=== PATIENT | male | born 1985 | race Caucasian/White ===

== ENCOUNTER 2023-09-27 09:46 | Outpatient (OUT) | payer BC, SELFPAY ==
[2023-09-27 10:44] LABS: Basophils Absolute Auto 0.1 10^3/uL (0.0-0.1); Eosinophils Absolute Auto 0.6 10^3/uL (0.0-0.7); Eosinophils Percent Auto 10.3 % (0.9-7.0); Hematocrit 47.5 % (42.0-54.0); Hemoglobin 15.5 g/dL (14.0-18.0); Immature Granulocytes Abs Auto 0.01 10^3/uL (0.00-0.03); Immature Granulocytes Pct Auto 0.2 % (0.0-0.5); Lymphocytes Absolute Auto 1.7 10^3/uL (1.2-3.8); Lymphocytes Percent Auto 26.7 % (20.5-60.0); Mean Corpuscular HGB Conc 32.6 g/dL (29.9-35.2); Mean Corpuscular Volume 92.1 fL (80.0-94.0); Mean Platelet Volume 9.3 fL (9.5-13.5); Monocytes Absolute Auto 0.7 10^3/uL (0.3-0.8); Monocytes Percent Auto 10.6 % (1.7-12.0); Neutrophils Absolute Auto 3.2 10^3/uL (1.4-6.5); Neutrophils Percent Auto 51.2 % (43.0-75.0); Platelet Count 317 10^3/uL (150-450); Red Blood Count 5.16 10^6/uL (4.70-6.10); Red Cell Distribution Width 12.6 % (11.0-15.0); White Blood Count 6.2 10^3/uL (4.0-11.0)
[2023-09-27 11:59] LABS: Alanine Aminotransferase 70 U/L (16-63); Albumin Globulin Ratio 0.8; Albumin Level 3.9 g/dL (3.4-5.0); Alkaline Phosphatase 90 U/L (46-116); Anion Gap 13.4; Aspartate Amino Transferase 38 U/L (15-37); BUN Creatinine Ratio 10.1; Bilirubin Total 0.5 mg/dL (0.2-1.0); Calcium 9.2 mg/dL (8.5-10.1); Carbon Dioxide 26.8 mmol/L (21.0-32.0); Chloride 101 mmol/L (98-107); Chol HDL Ratio 4.3; Cholesterol 286 mg/dL (<=200); Estimated GFR (African America >60 (>=60); Estimated GFR (Non-African Ame >60 (>=60); Globulin 4.7 g/dL; Glucose 96 mg/dL (74-106); HDL Cholesterol 67 mg/dL (40-60); Potassium 4.2 mmol/L (3.5-5.1); Sodium 137 mmol/L (136-145); Total Protein 8.6 g/dL (6.4-8.2); Triglycerides 131 mg/dL (<=150); VLDL CHOLESTEROL 26.2 mg/dL
== END 2023-09-27 09:47 | disposition home or self-care (01) ==
LOC: LAB 09:52
DX: Z51.81 Encounter for therapeutic drug level monitoring (principal); Z13.6 Encounter for screening for cardiovascular disorders
CPT/HCPCS: 36415; 80053; 80061; 85025

== ENCOUNTER 2025-04-13 14:22 | Emergency (ER) | payer OTHER, SELFPAY ==
[2025-04-13 14:30] VITALS: BP 209/115; PULSE 122; TEMP 36.5; O2SAT 96; BMI 41.1
--- NOTE | 2025-04-13 15:02 | XR_ITS ---
The [address] [address] Patient Name: HANNAH LONG MRN: [id number] date: 1985 Sex: M Assigned Patient Location: ER Current Patient Location: ED.MAIN Accession/Order Number: [id number] Exam Date: 04/13/2025 15:19 Report Date: 04/13/2025 16:30 At the request of: LACIE ADAMES Procedure: XR foot RT min 3V 3 views right foot HISTORY: Fell last week. Right great toe injury No acute displaced fracture. 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 Large superior marginal spurring XR/XR foot RT min 3V IMPRESSION: No acute displaced fracture. Extensive first toe degeneration. Impression dictated by: Emeterio Giraldo M.D. 04/13/2025 4:30 PM Dictation Location: [facility]ITALSquare[facility] Electronically authenticated by: [id number] Y Date: 04/13/2025 16:30
--- OUTSIDE RECORDS SUMMARY | 2025-04-13 15:51 | XMS_ITS | CCD ---
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 Name Role Phone HOUSE, JOAN Unavailable Unavailable HOUSE, JOAN Unavailable Unavailable HOUSE, JOAN Unavailable Unavailable HOUSE, JOAN Unavailable Unavailable JOE SEALS Unavailable Unavailable HOUSE, JOAN Unavailable Unavailable HOUSE, JOAN Unavailable Unavailable Hannah Santos Unavailable Hermes Bryant Unavailable Janine Alberto Unavailable Mariella Gomez Unavailable DEVI QUIJANO Attending Unavailable HANNAH SANTOS Referring Unavailable DEVI QUIJANO Attending Unavailable HANNAH SANTOS Referring Unavailable DEVI QUIJANO Attending Unavailable HANNAH SANTOS Referring Unavailable DEVI QUIJANO Attending Unavailable HANNAH SANTOS Referring Unavailable Hannah Santos DO Primary Care Provider Janine Alberto APRN Attending Provider Hannah Santos DO Attending Provider Hannah Santos DO Primary Care Provider [phone] Medications Current Medications MedicationDrug Class(es)DatesSig (Normalized)Sig (Original)amoxicillin 875 mg / clavulanate 125 mg oral tablet (6 sources)Penicillin-class AntibacterialStart: 60-57-7223vueb 1 tablet by mouth every twelve hoursAmoxicillin-Pot Clavulanate 875-125 MG 1 tablet Orally every 12 hrs for 10 day(s) Nov, ActiveStart: 54-26-8738skxf 1 tablet by mouth every twelve hoursAmoxicillin-Pot Clavulanate 875-125 MG 1 tablet Orally every 12 hrs for 10 day(s) May, Activeamphetamine aspartate 2.5 mg / amphetamine sulfate 2.5 mg / dextroamphetamine saccharate 2.5 mg / de xtroamphetamine sulfate 2.5 mg oral tablet (20 sources)Central Nervous System StimulantStart: 01-01-2024 End: 60-90-7561jwzf 1 tablet by mouth every four to six hoursDextroamphetamine- Amphetamine 10 mg tablet Active 10 MG PO Twice daily 60 30 January 08, 2025 administer doses at least 4-6 hours apart Complies with drug therapyStart: 07-10-2023 End: 88-33-1242Mtvcdarpweqgmqoow-Amphetamine 5 mg tablet Discontinued 5 MG PO Twice daily 60 30 December 06, 2023 January 01, 2024 8:32am 1 tablet Orally Twice a day (1 tab 5AM 1 tab 12 PM) Provider: Hermilo Larson NStart: 06-11-2023 Adderall 5 MG 1 tablet Orally Twice a day (1 tab 5AM 1 tab 12 PM) for 30 days May, ActiveStart: 60-39-5873Pchyflfw 5 MG 1 tablet Orally Twice a day (1 tab 5AM 1 tab 12 PM) for 30 days Apr, ActiveStart: 37-58-3285Sywwqeyw 5 MG 1 tablet Orally Twice a day (1 tab 5AM 1 tab 12 PM) for 30 days Mar, ActiveStart: 18-90-2902Acxwecio 5 MG 1 tablet Orally Twice a day (1 tab 5AM 1 tab 12 PM) for 30 days Feb, ActiveStart: 14-85-6307Agziglcr 5 MG 1 tablet Orally Twice a day (1 tab 5AM 1 tab 12 PM) for 30 days Dec, ActiveStart: 96-11-6983Efxyodur 5 MG 1 tablet Orally Twice a day (1 tab 5AM 1 tab 12 PM) for 14 days Dec, ActiveStart: 97-24-9192Lhkdjrwb 5 MG 1 tablet Orally Twice a day (1 tab 5AM 1 tab 12 PM) for 30 days Nov, ActiveStart: 54-33-8154Fksrxhgz 5 MG 1 tablet Orally Twice a day (1 tab 5AM 1 tab 12 PM) for 30 days Oct, ActiveStart: 74-44-9659Wykmfyte 5 MG 1 tablet Orally Twice a day (1 tab 5AM 1 tab 12 PM) for 30 days September, ActiveStart: 44-43-1900Tpmcdvzj 5 MG 1 tablet Orally Twice a day (1 tab 5AM 1 tab 12 PM) for 30 days Aug, ActiveStart: 19-47-3242Rijdjawu 5 MG 1 tablet Orally Twice a day (1 tab 5AM 1 tab 12 PM) for 30 days Jun, ActiveStart: 60-41-9239Dlrcynfn 5 MG 1 tablet Orally Twice a day (1 tab 5AM 1 tab 12 PM) for 30 days Feb, ActiveStart: 94-03-0363Ufdtuieg 5 MG 1 tablet Orally Twice a day (1 tab 5AM 1 tab 12 PM) for 30 days Jan, ActiveStart: 75-83-2545Ddryooja 5 MG 1 tablet Orally Twice a day (1 tab 5AM 1 tab 12 PM) for 30 days Dec, ActiveStart: 61-14-9013Yuikhqgd 5 MG 1 tablet Orally Twice a day (1 tab 5AM 1 tab 12 PM) for 30 days Nov, ActiveStart: 69-82-4702Hnduimkj 5 MG 1 tablet Orally Twice a day (1 tab 5AM 1 tab 12 PM) for 30 days Oct, ActiveStart: 18-75-6471Fqibapvk 5 MG 1 tablet Orally Twice a day (1 tab 5AM 1 tab 12 PM) for 30 days September, ActiveStart: 31-03-3596Agjzxnwi 5 MG 1 tablet Orally Twice a day (1 tab 5AM 1 tab 12 PM) for 30 days Aug, ActiveStart: 37-28-5363Xfzaydlu 5 MG 1 tablet Orally Twice a day (1 tab 5AM 1 tab 12 PM) for 30 days Jun, ActiveStart: 60-05-2377Rvqyyxrd 5 MG 1 tablet Orally Twice a day (1 tab 5AM 1 tab 12 PM) for 30 days May, ActiveClotrimazole (7 sources)Azole AntifungalStart: 75-66-1118Sbojdppuyyix 1 % 1 application Externally Twice a day for 28 day(s) Nov, ActiveStart: 11-05-2018 Clotrimazole 1 % 1 application to affected area Externally Twice a day for 30 day(s) Oct, Not-Takingfluconazole 200 mg oral tablet (4 sources)Azole AntifungalStart: 14-44-8032vocr 1 tablet by mouth every twenty- four hoursFluconazole 200 MG 1 tablet Orally daily for 10 day(s) Nov, Activenaltrexone hydrochloride 50 mg oral tablet (20 sources)Opioid AntagonistStart: 76-33-0798rwjf 1 tablet by mouth once daily Naltrexone 50 mg tablet Active 50 MG PO Daily 90 January 06, 2025 9:19am Complies with drug therapyStart: 08-02-2023 End: 10-59-2954slvw 1 tablet by mouth once dailyNaltrexone 50 mg tablet Discontinued 50 MG PO Daily 90 January 01, 2024 8:33am October 25, 2024 12:27pm Start: 66-85-7656bopl 1 tablet by mouth every twenty-four hoursNaltrexone HCl 50 MG 1 tablet Orally Once a day for 90 day(s) Feb, Activeofloxacin 3 mg/ml ophthalmic solution (3 sources)Quinolone AntimicrobialStart: 26-31-1167Nyrnhuuev 0.3 % 10 drops into affected ear Otic Once a day for 7 days Nov, Sfjfmk59 hr propranolol hydrochloride 60 mg extended release oral capsule (3 sources)beta-Adrenergic BlockerStart: 01-06-2025 End: 39-73-7057qzkj 1 capsule by mouth once dailyPropranolol 60 mg capsule,extended release 24 hr Active 60 MG PO Daily February 03, 2025 9:11am Complies with drug therapySenna Leaves (1 source)Start: 71-80-6111yifv 1-2 tablets by mouth once daily at bedtime as neededSenna 8.6 MG 1-2 tablets at bedtime as needed Orally Once a day for 30 days Mar, ActiveSennosides (3 sources)Start: 23-78-4881ywdx 1-2 tablets by mouth at bedtime as needed Sennosides Active 8.6 MG PO 1 to 2 times per day January 01, 2024 8:31am 1-2 tablets at bedtime as needed Orally Once a day Provider: Hermilo Payne Start: 01-01-2024 End: 39-22-1409cazo 1-2 tablets by mouth at bedtime as neededSennosides Discontinued 8.6 MG PO 1 to 2 times per day 60 30 January 01, 2024 8:27am January 01, 2024 8:33am 1-2 tablets at bedtime as needed Orally Once a day Provider: Hermlio Larson NStart: 07-10-2023 End: 31-89-7945sekz 1-2 tablets by mouth once daily at bedtime as needed Sennosides Discontinued MG PO July 10, 2023 1:00am January 01, 2024 8:29am 1-2 tablets at bedtime as needed Orally Once a day Provider: Hermilo Payne valACYclovir 1000 mg oral tablet (8 sources)Herpesvirus Nucleoside Analog DNA Polymerase Inhibitor, Herpes Simplex Virus Nucleoside Analog DNA Polymerase Inhibitor, Herpes Zoster Virus Nucleoside Analog DNA Polymerase InhibitorStart: 82-40-7728Mafscbrtgvcw 1 gram tablet Active 1000 MG PO Q8H 21 October 25, 2024 12:00am Complies with drug ther apyStart: 07-31-8591dtrq 1 tablet by mouth every twelve hoursvalACYclovir HCl 1 GM 1 tablet Orally Twice a day for 7 days Jul, Active Completed/Discontinued Medications MedicationDrug Class(es)DatesSig (Normalized)Sig (Original)[id number] 200 actuat albuterol 0.09 mg/actuat metered dose inhaler (20 sources)beta2-Adrenergic AgonistStart: 34-61-4304hplr 2.5 mg by inhalation every four to six hours as needed for wheezingAlbuterol Sulfate 2.5 mg /3 mL (0.083 %) solution for nebulization Active 2.5 MG INHALATION EVERY 4-6 HOURS as needed for shortness of breath or wheezing 180 August 02, 2023 1:00am Complies with drugtherapyStart: 07-10-2023 End: 13-94-9872weur 1 puff(s) by inhalation every four hours as neededAlbuterol Sulfate 90 mcg/actuation HFA aerosol inhaler Discontinued 1 PUFF INHALATION Every 4 hoursas needed October 25, 2024 12:26pm January 06, 2025 9:21am 1 puff as needed Inhalation every 4 hrs Provider: Hermilo Martin 1 puff(s) by inhalation every four hours as neededAlbuterol Sulfate HFA 108 (90 Base) MCG/ACT 1 puff as needed Inhalation every 4 hrs for 30 day(s) prn Activetake 1 puff(s) by inhalation every four hours as neededAlbuterol Sulfate HFA 108 (90 Base) MCG/ACT 1 puff as needed Inhalation every 4 hrs for 30 day(s) prn Activetake 1 puff(s) by inhalation every four hours as neededAlbuterol Sulfate HFA 108 (90 Base) MCG/ACT 1 puff as needed Inhalation every 4 hrs for 30 day(s) prn Active cefdinir 300 mg oral capsule (10 sources)Cephalosporin AntibacterialStart: 08-02-2023 End: 16-41-9588wwhr 1 capsule by mouth twice dailyCefdinir 300 mg capsule Discontinued 300 MG PO Twice daily September 27, 2023 12:00am December 18, 2023 8:55am60 actuat fluticasone propionate 0.25 mg/actuat / salmeterol 0.05 mg/actuat dry powder inhaler (3 sources)Corticosteroid, beta2-Adrenergic AgonistAdvair Diskus 250-50 MCG/DOSE 1 puff as directed twice daily for 90 day(s) has not needed Not-Taking ketoconazole 200 mg oral tablet (4 sources)Azole AntifungalStart: 07-08-2024 End: 35-10-5766vbjt 2 tablets by mouth once dailyKetoconazole 200 mg tablet Discontinued 400 MG PO Daily 08 12July 08, 2024 1:00am October 25, 2024 12:27pmKetorolac (20 sources)Nonsteroidal Anti-inflammatory Drug, Cyclooxygenase InhibitorStart: 34-94-8014Qmrbine per 15 mg Feb, 30 mgmethylPREDNISolone 4 mg oral tablet (20 sources)CorticosteroidStart: 10-25-2024 End: 12-53-7683laot 1 tablet by mouth onceMethylprednisolone (Medrol (Reilly)) 4 mg tablets,dose pack Discontinued 0 PO per package directions October 25, 2024 12:00am January 06, 2025 8:53am PO PER PKG DIR for 6 daysStart: 08-04-2022 methylPREDNISolone 4 MG as directed Orally for daily dose take half with breakfast, half with dinner for 6 days Jul, ActiveStart: 62-98-6540Tidr- Medrol 80 mg Jul, 80 mgStart: 35-20-0967Vbjt-Medrol 80 mg Mar, 80 mgpredniSONE 20 mg oral tablet (5 sources)Start: 82-66-8456xbae 2 tablets by mouth every twenty-four hours predniSONE 20 MG 2 tablet Orally Once a day for 5 days Feb, Not-Taking/PRNSennosides 8.6 mg tablet (6 sources)Start: 01-01-2024 End: 24-22-4188axeh 1-2 tablets by mouth at bedtime as neededSennosides 8.6 mg tablet Discontinued 8.6 MG PO 1 to 2 times per day 60 January 01, 2024 8:31am October 25, 2024 12:27pm 1-2 tablets at bedtime as needed Orally Once a day Provider: Hermilo Larson NStart: 52-31-8195fnwa 1-2 tablets by mouth at bedtime as neededSennosides 8.6 mg tablet Active 8.6 MG PO 1 to 2 times per day 60 January 01, 2024 7:31am 1-2 tablets at bedtime as needed Orally Once a day Provider: Hermilo Larson NStart: 01-01-2024 End: 91-81-0922xliu 1-2 tablets by mouth at bedtime as neededSennosides 8.6 mg tablet Discontinued 8.6 MG PO 1 to 2 times per day 60 January 01, 2024 8:27am January 01, 2024 8:33am 1-2 tablets at bedtime as needed Orally Once a day Provider: Hermilo Larson NStart: 01-01-2024 End: 08-34-2396zzax 1-2 tablets by mouth at bedtime as neededSennosides 8.6 mg tablet Discontinued 8.6 MG PO 1 to 2 times per day 60 January 01, 2024 7:27am January 01, 2024 7:33am 1-2 tablets at bedtime as needed Orally Once a day Provider: Hermilo Larson NStart: 07-10-2023 End: 02-76-5368hlvt 1-2 tablets by mouth once daily at bedtime as needed Sennosides 8.6 mg tablet Discontinued MG PO July 10, 2023 1:00am January 01, 2024 8:29am 1-2 tablets at bedtime as needed Orally Once a day Provider: Hermilo Larson NStart: 07-10-2023 End: 41-14-8998jayx 1-2 tablets by mouth once daily at bedtime as needed Sennosides 8.6 mg tablet Discontinued MG PO July 10, 2023 12:00am January 01, 2024 7:29am 1-2tablets at bedtime as needed Orally Once a day Provider: Hermilo Larson Nsennosides, nursing home 8.6 mg oral tablet (9 sources)Start: 01-01-2024 End: 80-32-0571jdji 1-2 tablets by mouth at bedtime as neededSennosides 8.6 mg tablet Discontinued 8.6 MG PO 1 to 2 times per day 60 January 01, 2024 8:31am October 25, 2024 12:27pm 1-2 tablets at bedtime as needed Orally Once a day Provider: Hermilo Larson NStart: 07-10-2023 End: 90-12-4305xuum 1-2 tablets by mouth once daily at bedtime as needed Sennosides 8.6 mg tablet Discontinued MG PO July 10, 2023 1:00am January 01, 2024 8:29am 1-2 tablets at bedtime as needed Orally Once a day Provider: Hermilo Larson NStart: 80-83-2110yrex 1-2 tablets by mouth once daily at bedtime as neededSenna 8.6 MG 1-2 tablets at bedtime as needed Orally Once a day for 30 days Mar, ActivetraMADol hydrochloride 50 mg oral tablet (3 sources)Opioid AgonistStart: 56-48-4672scuc 1 tablet by mouth once daily as neededtraMADol HCl 50 MG 1 tablet as needed (before PT exercising) Orally Once a day for 30 day(s) Apr, Not-TakingTriamcinolone (20 sources)CorticosteroidStart: 18-66-1513RFSGEVY - 10 mg Feb, 40 mg Problems Active Problems Problem ClassificationProblemDateDocumented DateEpisodic/ChronicAlcohol-related disorders (20 sources)Alcohol abuse; Translations: [Alcohol abuse, uncomplicated]Chronic Asthma (20 sources)Uncomplicated moderate persistent asthma; Translations: [Moderate persistent asthma, uncomplicated]Onset: 12-01-2021 Resolved: 13-58-0695BwbxgfqRxmcuhytk-deficit, conduct, and disruptive behavior disorders (20 sources)Adult attention deficit hyperactivity disorder ; Translations: [Attention-deficit hyperactivity disorder, unspecified type]43-14-7007Nujveay Attention-deficit, conduct, and disruptive behavior disorders (20 sources)Attention-deficit hyperactivity disorder, unspecified type; Translations: [Attention deficit disorder with hyperactivity]Onset: 06-02-2021 Resolved: 44-94-9719QxlnvfeIlcbqzn obstructive pulmonary disease and bronchiectasis (1 source)Bronchitis, not specified as acute or chronicEpisodicEssential hypertension (5 sources)Hypertensive disorder; Translations: [Essential (primary) hypertension]04-27-3575WygwpqqRurrv bone disease and musculoskeletal deformities (2 sources)Segmental and somatic dysfunction of pelvic region; Translations: [Nonallopathic lesions, pelvic region]EpisodicOther connective tissue disease (2 sources)Muscle spasm of cervical muscle of neck; Translations: [Other muscle spasm]18-80-1956FlzvseemLtlbi ear and sense organ disorders (1 source)Swimmer's ear, right earEpisodicOther gastrointestinal disorders (1 source)Drug induced constipationEpisodicOther hereditary and degenerative nervous system conditions (6 sources)Other specified extrapyramidal and movement disorders; Translations: [Scapular dyskinesis]ChronicOther hereditary and degenerative nervous system conditions (7 sources)Finding of scapular structure; Translations: [Other specified extrapyramidal and movement disorders]18-81-0665LqvpjvjFfxas nervous system disorders (20 sources)Chronic pain; Translations: [Other chronic pain]93-09-4587Vobvjbc Other nutritional; endocrine; and metabolic disorders (4 sources)Body mass index 30+ - obesity; Translations: [Body mass index (BMI) 39.0-39.9, adult]18-14-2059OlemdukAsssn upper respiratory infections (1 source)Upper respiratory infection; Translations: [Acute upper respiratory infection, unspecified]18-64-6467NublpwofMuabfudwfaq; intervertebral disc disorders; other back problems (3 sources)Cervicalgia; Translations: [Neck pain]EpisodicSprains and strains (3 sources)Superior glenoid labrum lesion of right shoulder, initial encounter; Translations: [Strain of unspecified muscle, fascia and tendon at shoulder and upper arm level, left arm, initial encounter]Onset: 45-49-8202TvdokxplLigty infection (3 sources)Zoster without complications; Translations: [Disseminated herpes zoster]Episodic Past or Other Problems Problem ClassificationProblemDateDocumented DateEpisodic/Chronic Administrative/social admission (1 source)Other stressful life events affecting family and householdOnset: 08-18-2021 Resolved: 98-43-3848NdmzbvydGryvtky (2 sources)Tinea corporisOnset: 12-01-2021 Resolved: 03-75-2323NyqcethrGpnsx aftercare (1 source)Encounter for therapeutic drug level monitoringOnset: 12-01-2021 Resolved: 51-04-7620OdmwunzzRkvih bone disease and musculoskeletal deformities (1 source)Segmental and somatic dysfunction of cervical regionOnset: 08-18-2021 Resolved: 88-25-3212LgqaxlovSznbn connective tissue disease (1 source)Unspecified rotator cuff tear or rupture of right shoulder, not specified as traumatic; Translations: [UNS ROT CUFF TEAR/RUPT RT SHOULDER]Onset: 45-68-5034PoywdthkPgprc non-traumatic joint disorders (4 sources)Pain in right shoulder; Translations: [PAIN IN RIGHT SHOULDER]Onset: 19-39-0361YilhftcpShmzw screening for suspected conditions (not mental disorders or infectious disease) (1 source)Encounter for screening for cardiovascular disordersOnset: 12-01-2021 Resolved: 48-66-5265UhndmcevDupujv media and related conditions (2 sources)Acute suppurative otitis media without spontaneous rupture of ear drum, left ear; Translations: [Acute suppurative otitis media without spontaneous rupture of ear drum, recurrent, bilateral]Onset: 06-24-2021 Resolved: 45-20-1532HsjipbneAphwyrqorcmu (1 source)Well adult; 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 New Office Encounter November 27, 2019 CC: Mood issues History: Hannah Long is a 34 year old year old, right-handed man who is here for the evaluation and management of the patient's traumatic brain injury. He has significant medical history including:asthma, chronic shoulder pain. Previous records (physician notes, laboratory reports, and radiology reports) and imaging studies were reviewed and summarized. Gets angry easily and is very impatient, Takes adderral (hasn't taken any adderral in 4 days) - prescribed by PCP, since 2016 - feels like it is helpful, but doesn't like having to take the meds Feels like mind is foggy, hard time staying on tasks (noticed by other people - his partner History of wrestling in college, played football, history of concussions (some with loss of consciousness), earliest in 7th grade, estimates 4-5, 2 were documented Graduated 2010 (no head injury since then) Chronic pain, hx of shoulder operations Uses medical marijuana for pain, especially at night (once a week) Chronic shoulder pain due to injuries Doesn't see PT Wondering if kickboxing is safe Sleep: trouble sleeping mostly due to pain Mood: gets angry easily, better and balanced Caffeine: yes, relies on it for chemistry Tobacco: not currently, very minor smoking history (one pack of cigarettes in his life) Alcohol: quit drinking 1 month ago, prior to this 4-6 beers a day 5 nights a week 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 ROS: GENERAL: No weight loss, malaise or fevers HEENT: Negative for frequent or significant headaches, No changes in hearing or vision, no nose bleeds or other nasal problems NECK: Negative for lumps, goiter, pain and significant neck swelling RESPIRATORY: Negative for cough, hemoptysis, wheezing, COPD, dyspnea or shortness of breath CARDIOVASCULAR: Negative for chest pain, leg swelling, hypertension, CHF or palpitations GI: No nausea, vomiting, or diarrhea : No history of dysuria, frequency or incontinence MUSCULOSKELETAL: See HPI SKIN: Negative for lesions, rash, and itching PSYCH: Negative for sleep disturbance, mood disorder and recent psychosocial stressors HEMATOLOGY/LYMPHOLOGY: Negative for prolonged bleeding, bruising easily or swollen nodes ENDOCRINE: Negative for cold or heat intolerance, polyuria, polydipsia and goiter NEURO: No history of headaches, syncope, paralysis, seizures or tremors/. See HPI for loss of consciousness secondary to concussions Current Outpatient Medications Medication Sig - VENTOLIN HFA 90 mcg/actuation inhaler Inhale 2 Puffs as instructed four times daily as needed. - cyclobenzaprine (FLEXERIL) 10 mg tablet Take 10 mg by mouth twice daily as needed. - dextroamphetamine-amphetamine (ADDERALL) 5 mg tablet Take 1 tablet by mouth twice daily. - gabapentin (NEURONTIN) 300 mg capsule Take 300 mg by mouth as needed. - valACYclovir (VALTREX) 1 gram Take 1,000 mg by mouth as needed. No current facility-administered medications for this visit. PAST MEDICAL HISTORY Diagnosis Date - Asthma - Chronic shoulder pain ALLERGIES No Known Allergies Examination: Vital Signs: BP 127/63 Pulse 70 Ht 188 cm (6' 2 ) Wt 113.4 kg (250 lb) BMI 32.10 kg/m? Examination: General: well appearing, in no acute distress, alert Pain Behaviors: no pain behaviors observed HEENT: normocephalic, atraumatic SKIN: no bruises or lesions Musculoskeletal: No gross joint deformities. Tenderness to palpitation of cervical spine and upper trapezius? No. Suboccipital tenderness? No. Muscle spasms present? No. Cervical ROM: Normal. Extremities: Normal exam of the extremities. No clubbing, cyanosis, or edema. Neurological: Mental Status: Alert and oriented to person, place and time. Affect is normal. Speech is spontaneous and fluent without dysarthria and clear, coherent, and relevant. Short and correction memory, cognition and general fund of knowledge are good. Attention span and concentration are excellent. ? Cranial Nerves: PERRL, visual gallegos intact to confrontation, extraocular movements intact, facial sensation intact, face symmetric, no facial droop or ptosis, hearing intact to finger rub bilaterally, no dysarthria, palate elevate symmetrically, tongue protrudes midline, shoulder shrug intact and symmetric and monocular visual gallegos intact to finger counting. ? Fundoscopic Exam: Optic discs appear normal ? Motor: muscle strength 5/5 both upper and lower extremities, no drift, normal tone. ? Reflexes: UE and LE reflexes are equal and reactive. ? Sensation: intact. ? Coordination: Finger-to- nose-finger intact bilaterally and Xddr-pd-caxp intact bilaterally. ? Rapid Alternating movements: symmetric ? Gait: normal-based, including toe, heal, and tandem. I have reviewed the [place] Status Assessment responses and discussed these with the patient: no, patient did not complete Eveline Reece DO Past Medical/Surgical History reviewed and updated. Medications reviewed and updated. Impression: Hannah Long is a 34 year old year old right-handed man, with a history of asthma, chronic shoulder pain, and post-herpetic neuralgia, ADHD who presents with a history of multiple concussions with concern for resultant inattention and mood swings. His neurological examination is essentially normal at this visit. No neurologic symptoms. Plan: -therapy/referrals: psychology -given educational material about concussion -reassured that CTE is a diagnosis at autopsy and would not impact management Follow-up: PRN Approximately 60 minutes was spent with the patient, of which more than 50% of the time was spent in counseling and/or coordinating . The patient understands and agrees with the plan of care outlined. I addressed patient's questions and concerns in detail in regards to the chief complaint today in addition to all other comorbidities. Eveline Reece DO [facility] November 27, 2019 Eveline Reece DO 11/27/2019 4:11 PM Signed CONCUSSION Definition: [place] [employer] (AMSSM, 2017) -Concussion is defined as a traumatically induced transient disturbance of brain function that involves a complex pathophysiologic process [employer] [employer] (AAN, 2013) -Concussion is recognized as a clinical syndrome of biomechanically induced alteration of brain function, typically affecting memory and orientation, which may involve loss of consciousness [place] -Concussion: a mild traumatic brain injury, caused by a direct blow or jolt to the head... it results in a short-term impairment of the neurological function and a constellation of symptoms Epidemiology: [facility] (014): 2.87 million emergency department visits, hospitalizations or deaths related to all type/severity of traumatic brain injury. 75% (2.15 million) felt to be mild (concussion) Most common cause is falls for those 0-17 years old and >65 years old, from age 15-24, the most common cause is car accidents Sports related concussion accounts for 1.6-3.8 million per year Pathophysiology (what's happening in the body): Feedback loop of depolarization and hyperexcitability -Overactivation of the body's resources lead to cell and accumulation of toxic by-products -In technical terms: Potassium moving out of the cell causes glutamate to be released, this causes sodium and calcium to move into the cell, this overwhelms a part of your cell called the mitochondria (the powerhouse of your cells needed for cell survival and function through energy production) and causes the mitochondria to use glucose (energy) too quickly --> lactate accumulation Later, you see axonal and cytoskeleton injury --> more by-products build up (example: beta amyloid precurson protein) and you start to see impaired synaptic plasticity. This means decreased motor learning. Ultimately, there is neuro-inflammation and blood brain barrier dysfunction. This is all happening at the molecular level. This is not something we measure with lab work or can see on a scan (CT or MRI). AAN and AMSSM actually state that imaging is rarely needed. Treatment: Prescribed rest (24-48 hours) -Symptom limited cognitive and physical rest -total rest (dark room, no stimulus) is DETRIMENTAL to recovery and NOT recommended. Nor is prolonged rest (>48 hours). Then graded return to activities. -Be aware: 30-80% will have post-concussive symptoms (PCS) in the acute/subacute period For headache: simple analgesics (over the counter pain medicines, ex: ibuprofen), AVOID narcotics SYMPTOMS ARE TYPICAL AND EXPECTED, THEY ARE NOT A SIGN OF SOMETHING WORSE. THEY WILL IMPROVE WITH HARD WORK BY PATIENT. Expectations: The vast majority of patients (80-90%) have resolution of PCS in 1-2 weeks without intervention. 10-20% have persistent post-concussive symptoms (PPCS) RISK FACTORS FOR PROLONGED RECOVERY: -history of depression -history of prior concussion There are no formal guidelines for return to work. Can I drive? AAN and AMSSM do not have formal guidelines. Decision is left to treating clinician. 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] Order(s):CONSULT TO PSYCHOLOGY [9036] Order #: [id number]: 1 FUTURE Prescriptions as of 11/27/2019 Sig: VENTOLIN HFA 90 MCG/ACTUATION* Inhale 2 Puffs as instructed * CYCLOBENZAPRINE 10 MG TABLET Take 10 mg by mouth twice beba* DEXTROAMPHETAMINE-AMPHETAMINE* Take 1 tablet by mouth twice * GABAPENTIN 300 MG CAPSULE Take 300 mg by mouth as neede* VALACYCLOVIR 1 GRAM TABLET Take 1,000 mg by mouth as nee* Problem List As Of Date 11/27/2019 Noted Resolved TBI (traumatic brain injury) (HCC) [S06.9X9A] 11/27/2019 Other instructions from your clinician: CONCUSSION Definition: [place] [employer] (AMSSM, 2017) -Concussion is defined as a traumatically induced transient disturbance of brain function that involves a complex pathophysiologic process [place] [employer] (AAN, 2013) -Concussion is recognized as a clinical syndrome of biomechanically induced alteration of brain function, typically affecting memory and orientation, which may involve loss of consciousness [place] -Concussion: a mild traumatic brain injury, caused by a direct blow or jolt to the head... it results in a short-term impairment of the neurological function and a constellation of symptoms Epidemiology: [facility] (014): 2.87 million emergency department visits, hospitalizations or deaths related to all type/severity of traumatic brain injury. 75% (2.15 million) felt to be mild (concussion) Most common cause is falls for those 0-17 years old and >65 years old, from age 15-24, the most common cause is car accidents Sports related concussion accounts for 1.6-3.8 million per year Pathophysiology (what's happening in the body): Feedback loop of depolarization and hyperexcitability -Overactivation of the body's resources lead to cell and accumulation of toxic by-products -In technical terms: Potassium moving out of the cell causes glutamate to be released, this causes sodium and calcium to move into the cell, this overwhelms a part of your cell called the mitochondria (the powerhouse of your cells needed for cell survival and function through energy production) and causes the mitochondria to use glucose (energy) too quickly --> lactate accumulation Later, you see axonal and cytoskeleton injury --> more by-products build up (example: beta amyloid precurson protein) and you start to see impaired synaptic plasticity. This means decreased motor learning. Ultimately, there is neuro-inflammation and blood brain barrier dysfunction. This is all happening at the molecular level. This is not something we measure with lab work or can see on a scan (CT or MRI). AAN and AMSSM actually state that imaging is rarely needed. Treatment: Prescribed rest (24-48 hours) -Symptom limited cognitive and physical rest -total rest (dark room, no stimulus) is DETRIMENTAL to recovery and NOT recommended. Nor is prolonged rest (>48 hours). Then graded return to activities. -Be aware: 30-80% will have post-concussive symptoms (PCS) in the acute/subacute period For headache: simple analgesics (over the counter pain medicines, ex: ibuprofen), AVOID narcotics SYMPTOMS ARE TYPICAL AND EXPECTED, THEY ARE NOT A SIGN OF SOMETHING WORSE. THEY WILL IMPROVE WITH HARD WORK BY PATIENT. Expectations: The vast majority of patients (80-90%) have resolution of PCS in 1-2 weeks without intervention. 10-20% have persistent post-concussive symptoms (PPCS) RISK FACTORS FOR PROLONGED RECOVERY: -history of depression -history of prior concussion There are no formal guidelines for return to work. Can I drive? AAN and AMSSM do not have formal guidelines. Decision is left to treating clinician. Encounter Status:Closed by EVELINE REECE DO on 11/27/19NoMain Campus Medical CenterPROGUADALUPE COUNTY HOSPITALon [id number] ID: [id number] Author: Eveline Reece Service: ? Author Type: Physician Type: Progress Notes Filed: 11/27/2019 4:39 PM Note Text: Head[facility] New Office Encounter November 27, 2019 CC: Mood issues History: Hannah Long is a 34 year old year old, right-handed man who is here for the evaluation and management of the patient's traumatic brain injury. He has significant medical history including:asthma, chronic shoulder pain. Previous records (physician notes, laboratory reports, and radiology reports) and imaging studies were reviewed and summarized. Gets angry easily and is very impatient, Takes adderral (hasn't taken any adderral in 4 days) - prescribed by PCP, since 2016 - feels like it is helpful, but doesn't like having to take the meds Feels like mind is foggy, hard time staying on tasks (noticed by other people - his partner History of wrestling in college, played football, history of concussions (some with loss of consciousness), earliest in 7th grade, estimates 4-5, 2 were documented Graduated 2010 (no head injury since then) Chronic pain, hx of shoulder operations Uses medical marijuana for pain, especially at night (once a week) Chronic shoulder pain due to injuries Doesn't see PT Wondering if kickboxing is safe Sleep: trouble sleeping mostly due to pain Mood: gets angry easily, better and balanced Caffeine: yes, relies on it for chemistry Tobacco: not currently, very minor smoking history (one pack of cigarettes in his life) Alcohol: quit drinking 1 month ago, prior to this 4-6 beers a day 5 nights a week 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 ROS: GENERAL: No weight loss, malaise or fevers HEENT: Negative for frequent or significant headaches, No changes in hearing or vision, no nose bleeds or other nasal problems NECK: Negative for lumps, goiter, pain and significant neck swelling RESPIRATORY: Negative for cough, hemoptysis, wheezing, COPD, dyspnea or shortness of breath CARDIOVASCULAR: Negative for chest pain, leg swelling, hypertension, CHF or palpitations GI: No nausea, vomiting, or diarrhea : No history of dysuria, frequency or incontinence MUSCULOSKELETAL: See HPI SKIN: Negative for lesions, rash, and itching PSYCH: Negative for sleep disturbance, mood disorder and recent psychosocial stressors HEMATOLOGY/LYMPHOLOGY: Negative for prolonged bleeding, bruising easily or swollen nodes ENDOCRINE: Negative for cold or heat intolerance, polyuria, polydipsia and goiter NEURO: No history of headaches, syncope, paralysis, seizures or tremors/. See HPI for loss of consciousness secondary to concussions Current Outpatient Medications Medication Sig - VENTOLIN HFA 90 mcg/actuation inhaler Inhale 2 Puffs as instructed four times daily as needed. - cyclobenzaprine (FLEXERIL) 10 mg tablet Take 10 mg by mouth twice daily as needed. - dextroamphetamine-amphetamine (ADDERALL) 5 mg tablet Take 1 tablet by mouth twice daily. - gabapentin (NEURONTIN) 300 mg capsule Take 300 mg by mouth as needed. - valACYclovir (VALTREX) 1 gram Take 1,000 mg by mouth as needed. No current facility-administered medications for this visit. PAST MEDICAL HISTORY Diagnosis Date - Asthma - Chronic shoulder pain ALLERGIES No Known Allergies Examination: Vital Signs: BP 127/63 Pulse 70 Ht 188 cm (6' 2 ) Wt 113.4 kg (250 lb) BMI 32.10 kg/m? Examination: General: well appearing, in no acute distress, alert Pain Behaviors: no pain behaviors observed HEENT: normocephalic, atraumatic SKIN: no bruises or lesions Musculoskeletal: No gross joint deformities. Tenderness to palpitation of cervical spine and upper trapezius? No. Suboccipital tenderness? No. Muscle spasms present? No. Cervical ROM: Normal. Extremities: Normal exam of the extremities. No clubbing, cyanosis, or edema. Neurological: Mental Status: Alert and oriented to person, place and time. Affect is normal. Speech is spontaneous and fluent without dysarthria and clear, coherent, and relevant. Short and ocean transportation intermediary memory, cognition and general fund of knowledge are good. Attention span and concentration are excellent. ? Cranial Nerves: PERRL, visual gallegos intact to confrontation, extraocular movements intact, facial sensation intact, face symmetric, no facial droop or ptosis, hearing intact to finger rub bilaterally, no dysarthria, palate elevate symmetrically, tongue protrudes midline, shoulder shrug intact and symmetric and monocular visual gallegos intact to finger counting. ? Fundoscopic Exam: Optic discs appear normal ? Motor: muscle strength 5/5 both upper and lower extremities, no drift, normal tone. ? Reflexes: UE and LE reflexes are equal and reactive. ? Sensation: intact. ? Coordination: Finger-to- nose-finger intact bilaterally and Eerz-tj-sver intact bilaterally. ? Rapid Alternating movements: symmetric ? Gait: normal-based, including toe, heal, and tandem. I have reviewed the Dami Status Assessment responses and discussed these with the patient: no, patient did not complete Eveline Reece DO Past Medical/Surgical History reviewed and updated. Medications reviewed and updated. Impression: Hannah Long is a 34 year old year old right-handed man, with a history of asthma, chronic shoulder pain, and post-herpetic neuralgia, ADHD who presents with a history of multiple concussions with concern for resultant inattention and mood swings. His neurological examination is essentially normal at this visit. No neurologic symptoms. Plan: -therapy/referrals: psychology -given educational material about concussion -reassured that CTE is a diagnosis at autopsy and would not impact management Follow-up: PRN Approximately 60 minutes was spent with the patient, of which more than 50% of the time was spent in counseling and/or coordinating . The patient understands and agrees with the plan of care outlined. I addressed patient's questions and concerns in detail in regards to the chief complaint today in addition to all other comorbidities. Eveline Reece DO [facility] November 27, 2019NoUniversity Hospitals Geneva Medical CenterI SHOULDER RT WO CONon 12-29-2016 MRI SHOULDER RT WO [id number] [place] [address] Patient: HANNAH LONG Exam Date: 12/29/2016DOB: 1985 Gender:M : DR JOAN VANEGAS Admission #: [id number] : Order #: [id number] HERE TO VIEW EXAM RADIOLOGY REPORT PROCEDURE: MRI SHOULDER RIGHTWITHOUT CONTRAST COMPARISON: None. INDICATIONS: Right shoulder rotator syndrome, SLAP tear. Chronicright shoulder pain with limited range of movement. Previous surgery TECHNIQUE: A variety of imaging planes and parameters were utilized for visualization of suspected pathology. Imaging was performed without contrast. FINDINGS:ROTATOR CUFF REGION CUFF TENDONS: Moderate increased signal intensity in the supraspinatus tendon indicates tendon degeneration and/or tendinitis. No brennon tear is seen. CUFF MUSCLES: Normal appearing muscles. DELTOID: No significant atrophy or tear. LONG BICEPS TENDON: Thickening and increased T2 signal of the tendon as it crosses over the humeral head and attaches tothe glenoid.LABRUM/BICEPS ANCHOR SUPERIOR: No visible labral tear or biceps anchor pathology. ANTERIOR/INFERIOR: No visible tear or attrition. POSTERIOR: No posterior labrum abnormality. CAPSULE Normal. No visible capsular laxity or thickening. AC JOINT REGION AC JOINT: Mild osteoarthropathy with mild narrowing of the underlying coracoacromial arch. AC LIGAMENTS: Normal acromioclavicular ligament. CC LIGAMENTS: Normal coracoclavicular ligaments. ACROMION: Normal horizontal configuration. SUBACROMIAL BURSA: Mild effusion. HYALINE CARTILAGE: Mild pain.OTHER BONES: Small metallic artifact adjacent to the articular surface of the humeral head adjacent to the glenoid; possible anchor for prior cartilage repair. Small subchondral cysts within the humeral head deep to the superior rotator cuff attachment.OTHER OBSERVATIONS: Negative. No other significant findings or glenohumeral effusion. CONCLUSION: 1. Moderate strain of the supraspinatus tendon.2. Mild osteoarthropathy of the acromioclavicular joint.3. Strain versus partial tear of the biceps tendon as it crosses over the humeral head.4.Irregularity of the superior labrum without convincing acute tear. Dictated by: Joe Seals M.D.on 12/29/2016 at 15:46 Approved by: Joe Seals M.D. on 12/29/2016 at 15:59[facility] CenterXR FOREIGN BODY EYEon [id number] FOREIGN BODY [id number] [place] [address] Patient: HANNAH LONG Exam Ollie e: 12/29/2016DOB: 1985 Gender:M : DR JOAN VANEGAS Admission #: [id number] : Order #: [id number] HERE TO VIEW EXAM RADIOLOGY REPORT PROCEDURE: RADIOGRAPH FOREIGNBODY EYE COMPARISON: None. INDICATIONS: Foreign body screen FINDINGS: ORBITS: Negative for a metallic foreign body.OTHER: Negative. CONCLUSION: No metallic foreign body within the orbits. Dictated by: Joe Seals M.D. on 12/29/2016 at 13:38 Approved by: Joe Seals M.D. on 12/29/2016 at 13:39[facility] Vital Signs Date TimeVital SignValuePerforming [id number] 08:45-0400Body .96 cmMatthew Hermilo DO Work Phone: 1(616)[address] [place], [place] 7637209-09-2025 08:45-0400 Body mass index (BMI) [Ratio]40.9 kg/g2Wiqamww Hermilo DO Work Phone: 1(303)[address] [place], [place] 7637209-09-2025 08:45-0400 Body kkijhc954.69 kgMatthew Hermilo DO Work Phone: 1(267)[address] [place], [place] 7637209-09-2025 08:45-0400 Diastolic blood zhdgxluo87 mm[Hg]Hannah Santos DO Work Phone: 1(247)[address] [place], [place] 7637209-09-2025 08:45-0400 Heart rate80 /minMatthew Hermilo DO Work Phone: 1(258)[address] [place], [place] 7637209-09-2025 08:45-0400 SaO2% (BldA) [Mass fraction]98 %Hannah Santos DO Work Phone: 1(331)[address] [place], [place] 7637209-09-2025 08:45-0400 Systolic blood baqudfup694 mm[Hg]Hannah Santos DO Work Phone: 1(531)[address] [place], [place] 7637208-12-2025 08:47-0400 Body yfwiiu131.96 cmMattkannanw Hermilo DO Work Phone: 1(934)[address] [place], [place] 7637208-12-2025 08:47-0400 Body mass index (BMI) [Ratio]39.9 kg/b4Hwugcyt Hermilo DO Work Phone: 1(859)[address] [place], [place] 7637208-12-2025 08:47-0400 Body mobope662.06 kgMattkannanw Hermilo DO Work Phone: 1(022)[address] [place], [place] 7637208-12-2025 08:47-0400 Diastolic blood mqswqsuu574 mm[Hg]Hannah Santos DO Work Phone: 1(024)[address] [place], [place] 7637208-12-2025 08:47-0400 Heart vvhy830 /minMattkannanw Hermilo DO Work Phone: 1(653)[address] [place], [place] 7637208-12-2025 08:47-0400 Respiratory rate18 /minMatthew Hermilo DO Work Phone: 1(610)[address] [place], [place] 7637208-12-2025 08:47-0400 SaO2% (BldA) [Mass fraction]98 %Hannah Santos DO Work Phone: 1(023)[address] [place], [place] 7637208-12-2025 08:47-0400 Systolic blood mrllfrod500 mm[Hg]Hannah Santos DO Work Phone: 1(891)[address] [place], [place] 7637205-31-2025 12:21-[address]-2025 12:21-0400Body mass index (BMI) [Ratio]41.5 kg/d4MthjdesaiWilson [address] Hospital05-31-2025 12:21-0400Body fwnxlqqgvoe62.5 [degF][facility]05-31-2025 12:21-040Body [address]ytpks809.[address]05-31-2025 12:21-0400Diastolic blood mm[Hg][facility] 10-25-2024 12:21-0400Heart tgsf623 /min[facility] 10-25-2024 12:21-0400Respiratory rate18 /min[facility] 10-25-2024 12:21-2284ZjK5% (BldA) [Mass fraction]93 %[facility]05-31-2025 12:21-0400Systolic blood clfhifgl431 mm[Hg][facility]02-11-2025 08:24-0500Body ouqrqf542.[address]02-11-2025 08:24-0500Body mass index (BMI) [Ratio]39.8 kg/m2 [facility]02-11-2025 08:24-0500Body .[address] [facility]02-11-2025 08:24-0500Diastolic blood lhhvnepy95 mm[Hg][facility]02-11-2025 08:24-0500Heart rate96 /min [facility]02-11-2025 08:24-8519TmO4% (BldA) [Mass fraction]97 %[facility]02-11-2025 08:24-0500Systolic blood ipkknfvl639 mm[Hg][facility]08-06-2024 07:58-[address]08-06-2024 07:58-0400Body mass index (BMI) [Ratio]38 kg/l1EpzgevdroWilson [address] Hospital08-06-2024 07:58-0400Body ntunye321.[address]08-06-2024 07:58-0400Diastolic blood ebsqsenu457 mm[Hg][facility] 01-01-2024 07:58-0400Heart rate82 /min[facility] 01-01-2024 07:58-8234GgJ0% (BldA) [Mass fraction]96 %[facility]08-06-2024 07:58-0400Systolic blood cfnfziqb319 mm[Hg][facility]11-14-2023 11:15-0500Body ugwhqz128.96 cmMattmike Santos Other [facility] [employer] Other 11-14-2023 11:15-0500Body mass index (BMI) [Ratio] 38.13 kg/v3AalnrfzHannah Santos Other [employer] [facility] [employer] Other 11-14-2023 11:15-0500Body mcljyp084.72 kgMafran Santos Other [facility] [employer] Other 11-14-2023 11:15-0500Diastolic blood mm[Hg] Hannah Santos Other [employer] [facility] [employer] Other 11-14-2023 11:15-0500Respiratory rate18 /minMafran Santos Other [facility] [facility] [employer] Other 11-14-2023 11:15-6655YhQ5% (BldA) [Mass fraction]98 % Hannah Santos Other [facility] [facility] [employer] Other 11-14-2023 11:15-0500Systolic blood vmwmapbw270 mm[Hg] Hannah Santos Other [employer] [facility] [employer] Other 10-17-2023 09:15-0400Body agskhg770.96 cmMafran Santos Other [facility] [employer] Other 10-17-2023 09:15-0400Body mass index (BMI) [Ratio] 38.13 kg/d9XtjgklfHannah Santos Other [facility] [employer] Other 10-17-2023 09:15-0400Body pprwvbyxdat94.2 [degF] Hannah Santos Other [employer] [facility] [employer] Other 10-17-2023 09:15-0400Body abnlqg870.72 kgMattmike Santos Other [facility] [employer] Other 10-17-2023 09:15-0400Diastolic blood feyiaifc03 mm[Hg] Hannah Santos Other [employer] [facility] [employer] Other 10-17-2023 09:15-0712IxT1% (BldA) [Mass fraction]98 % Hannah Santos Other [employer] [facility] [employer] Other 10-17-2023 09:15-0400Systolic blood nojeduze620 mm[Hg] Hannah Santos Other [employer] [facility] [employer] Other 07-07-2023 09:00-0400Body ltxyxc205.96 cmMafran Santos Other [facility] [facility] [employer] Other 07-07-2023 09:00-0400Body mass index (BMI) [Ratio] 35.43 kg/w0YjehrzlHannah Santos Other [facility] [facility] [employer] Other 07-07-2023 09:00-0400Body ilwzapsxyio75.2 [degF] Hannah Santos Other [facility] [facility] [employer] Other 07-07-2023 09:00-0400Body osryxp588.19 kgMafran Santos Other [facility] [facility] [employer] Other 07-07-2023 09:00-0400Diastolic blood sofchrkf17 mm[Hg] Hannah Santos Other [employer] [facility] [employer] Other 07-07-2023 09:00-4572QlW7% (BldA) [Mass fraction]96 % Hannah Santos Other [employer] Other 07-07-2023 09:00-0400Systolic blood nioravxy869 mm[Hg] Hannah Santos Other [employer] Other 03-10-2023 12:20-0500Body ynwwpl640.96 cmAjohn Alberto Other [facility] [facility] [employer] Other 03-10-2023 12:20-0500Body mass index (BMI) [Ratio] 34.41 kg/u1UqjreJanine Alberto Other [facility] [facility] [employer] Other 03-10-2023 12:20-0500Body zrikvmoiseh94.6 [degF]Janine Alberto Other [employer] [facility] [employer] Other 03-10-2023 12:20-0500Body sfhrac965.56 kgJanine Alberto Other [facility] [facility] [employer] Other 03-10-2023 12:20-0500Respiratory rate18 /minJanine Alberot Other [employer] [facility] [employer] Other 03-10-2023 12:20-8948CgJ6% (BldA) [Mass fraction]97 % Janine Alberto Other [employer] Other 10-05-2022 16:00-0400Body jkbuma148.96 cmMattmike Santos Other [employer] Other 10-05-2022 16:00-0400Body mass index (BMI) [Ratio] 35.98 kg/y8Tbsvamjmike Santos Other [employer] [facility] [employer] Other 10-05-2022 16:00-0400Body bonsvb962.14 kgHannah Santos Other [facility] [employer] Other 10-05-2022 16:00-0400Diastolic blood fprnerfd98 mm[Hg] Hannah Santos Other [employer] [facility] [employer] Other 10-05-2022 16:00-0400Respiratory rate18 /minHannah Santos Other [facility] [facility] [employer] Other 10-05-2022 16:00-4477VtT5% (BldA) [Mass fraction]97 % Hannah Santos Other [employer] [facility] [employer] Other 10-05-2022 16:00-0400Systolic blood uneodpbn482 mm[Hg] Hannah Snatos Other [employer] [facility] [employer] Other 07-07-2022 17:00-0400Body ugfuxy547.96 cmRichdariusz Bryant Other [facility] [facility] [employer] Other 07-07-2022 17:00-0400Body mass index (BMI) [Ratio] 36.57 kg/u6JkofnvzHermes Bryant Other [employer] [facility] [employer] Other 07-07-2022 17:00-0400Body qvkiaj154.23 kgHermes Bryant Other [facility] [facility] [employer] Other 07-07-2022 17:00-0400Diastolic blood dteljajb89 mm[Hg] Hermes Bryant Other [employer] [facility] [employer] Other 07-07-2022 17:00-0400Respiratory rate18 /minHermes Bryant Other [facility] [facility] [employer] Other 07-07-2022 17:00-4811BbZ0% (BldA) [Mass fraction]97 % Hermes Bryant Other [facility] [facility] [employer] Other 07-07-2022 17:00-0400Systolic blood mm[Hg] Hermes Bryant Other [employer] [facility] [employer] Other 03-24-2022 12:00-0400Body eumneb961.96 cmMafran Santos Other [employer] [facility] [employer] Other 03-24-2022 12:00-0400Body mass index (BMI) [Ratio] 36.33 kg/c5CbcjrsqHannah Santos Other [facility] [facility] [employer] Other 03-24-2022 12:00-0400Body fxhlal299.37 kgMattmike Santos Other [employer] Other 03-24-2022 12:00-0400Diastolic blood mm[Hg] Hannah Santos Other [employer] Other 03-24-2022 12:00-0400Respiratory rate18 /minMafran Santos Other [employer] Other 03-24-2022 12:00-8393MuX1% (BldA) [Mass fraction]97 % Hannah Santos Other [employer] Other 03-24-2022 12:00-0400Systolic blood ntmgwtli613 mm[Hg] Hannah Santos Other [employer] Other 01-28-2022 10:45-0500Body yluocz410.96 cmMafran Santos Other [employer] [facility] [employer] Other 01-28-2022 10:45-0500Body mass index (BMI) [Ratio]35.3 kg/j2EbradbdHannah Santos Other [employer] Other 01-28-2022 10:45-0500Body zgqqax502.74 kgMafran Santos Other [employer] Other 01-28-2022 10:45-0500Diastolic blood osynxujg17 mm[Hg] Hannah Santos Other [place] [employer] Other 01-28-2022 10:45-0500Respiratory rate18 /minMafran Santos Other [employer] Other 01-28-2022 10:45-7686DxK6% (BldA) [Mass fraction]98 % Hannah Santos Other [place] [employer] Other 01-28-2022 10:45-0500Systolic blood tkrqecdt337 mm[Hg] Hannah Santos Other [employer] Other Encounters Encounter DateEncounter TypeCare ProviderFacilityStart: 02-03-2025 End: 95-62-5863phmlvdqjdbXzvfqvw N Widmer DO Work Phone: [facility] Work Phone: Start: 02-03-2025 End: 52-01-3069Feheees encounter procedureMafran Santos DO-[facility] Work Phone: Start: 01-06-2025 End: 35-94-0414olhyczkrzyGswylsy N Widmer DO Work Phone: [facility] Work Phone: Start: 01-06-2025 End: 32-39-7854Ohobjpc encounter procedureMafran Santos DO-[facility] Work Phone: Start: 01-06-2025 End: 66-68-1733Sngmrtz encounter statusMafran Santos [facility]: 10-25-2024 End: 42-33-4944doxljrqhhiQdxzxjmftMansfield Hospital Work Phone: Start: 10-25-2024 End: 94-70-5664Ejvclxq encounter procedureFirelands Physician Group-[facility] Work Phone: Start: 07-08-2024 End: 78-47-0665mbrmurpxuyJjtahvzufOhioHealth Southeastern Medical Center Work Phone: Start: 07-08-2024 End: 16-36-5281Zxfrnfg encounter procedureFirelands Physician Group-[facility] Work Phone: Start: 01-01-2024 End: 56-73-2066lhwhxzzkxyVixgfhwumOhioHealth Southeastern Medical Center Work Phone: Start: 01-01-2024 End: 50-83-8569Jnhddtu encounter procedureFirelands Physician Group-[facility] Work Phone: Start: 06-11-2023 End: 73-50-7307ulgdpewdniLgrnrru Widmer Other [place] [employer] Other Start: 89-16-1316Qfcukluvr encounterMatthew WidmerFP[facility] SpineStart: 05-10-2023 End: 25-55-0709wzixkixjaiHfbzawk Hermilo Other [employer] Other Start: 64-14-8516Hwucjumvy encounterMatthew WidmerFPG Family [facility] HospitalStart: 05-03-2023 End: 77-46-7774lnfhfgmhbcFBAFXZ T [place]ACK[place]ONNot AvailableStart: 04-26-2023 End: 57-97-8208bkgctmdoquQUVZPJ T BLACKSTONNot AvailableStart: 04-24-2023 End: 26-19-4649unjasyktclEXRESF T [place]ACK[place]ONNot AvailableStart: 04-12-2023 End: 78-79-6783ybkdeodrmaTEIVYC T BLACK[place]ONNot AvailableStart: 04-10-2023 End: 34-84-5795jhfekshliyUqkstte Hermilo Other [facility] Other Start: 04-80-2162Xsmcoc outpatient visit 25 minutes Hannah AntunezG [facility] HospitalStart: 03-13-2023 End: 32-39-1701zfuagogzxeHwokgqd Hermilo Other [facility] Other Start: 67-17-6383Efiewz outpatient visit 25 minutes Hannah AntunezG [facility] HospitalStart: 19-35-6710Ttlwgziiq encounterMatthew WidmerFPG Family [facility] HospitalStart: 01-10-2023 End: 45-32-5725ksdfuexygrHpvwwev Hermilo Other [employer] Other Start: 75-97-4280Owxjuubhh encounterMatthew WidmerFPG Family [facility] HospitalStart: 12-29-2022 End: 38-39-6831bahuvftjiqAuqrcghi Kaple Other [employer] Other Start: 07-39-5416Ilmudciev encounterJennifer KapleFP[facility] [place]Start: 12-01-2022 End: 23-10-6235hnrdpgiielTsknksj Hermilo Other [place] [employer] Other Start: 47-37-7600Ztejntzcv for general adult medical examination without abnormal findingsMatthew WidSelect [facility] Start: 93-94-6065Ttvohpcy preventive med est patient 18-[address] [facility] [place]Start: 11-02-2022 End: 68-27-0665sisceqjeffPippvzf Hermilo Other [place] [employer] Other Start: 33-63-3165Rmnyojhdf encounterMatthew WidmerFPG [facility] [place]Start: 10-02-2022 End: 73-29-9050hnokfgvajxNhsxtst Hermilo Other [place] [employer] Other Start: 31-64-7174Mznkgnspw encounterMatthew WidmerFP[facility] [place]Start: 09-01-2022 End: 18-67-0814rqgujjghrrPphvoha Hermilo Other [place] [employer] Other Start: 26-94-4965Eppuenkdr encounterMatthew WidmerFP[facility] [place]Start: 08-04-2022 End: 95-55-0868xvwjqdijdpNzqxite Binks Other [facility] Other Start: 56-48-5522Gyuacr outpatient visit 15 minutes Janine KellerFP[facility] ClydeStart: 41-69-2020Ibmjkjkbt encounterRichdariusz BryantFPG [facility] [place]Start: 07-04-2022 End: 03-11-7023hikzwkrjvaAvczhtm Binks Other [employer] [employer] Other Start: 89-20-3031Hdkolvnrw encounterRichard BinksFP[facility] [place]Start: 06-05-2022 End: 85-34-1623nancgvnwavSccdagb Binks Other [facility] Other Start: 07-07-2375Lrfpswlcj encounterRichard BinksFP[facility] [place]Start: 03-01-2022 End: 01-51-4181teqtycyhgfByrxhpw Hermilo Other [place] [employer] Other Start: 49-47-2616Tllair outpatient visit [address] [facility] [place] Hospitalart: 02-01-2022 End: 62-13-9784vosnrwzlxiWdbfdbl Hermilo Other [facility] Other Start: 53-61-1109Ivxsyzxpt encounterMatthew WidmerFP[facility] [place]Start: 01-02-2022 End: 35-43-0671wvmnsgnxfrLqlscel Hermilo Other [facility] Other Start: 56-40-2971Lrvhavcag encounterMatthew WidmerFP[facility] [place]Start: 12-02-2021 End: 74-18-8291vjrpqukymjZnkidqa Binks Other [facility] Other Start: 38-91-3533Dtyojescq encounterRichard BinksFP[facility] CenteryStart: 12-01-2021 End: 30-54-2719abkdeegernWvuzupe Binks Other [place] [employer] Other Start: 23-28-4051Ysgwpeweo for general adult medical examination without abnormal findingsHermes BryantTEMPE ST. [facility] [place] Start: 76-51-1289Kpdaaztm preventive med est patient 18-[address] [facility] Family Medicine [place]Start: 11-29-2021 End: 67-94-6306iyexbhzdxxLmbmiwd Manny Other [facility] Other Start: 82-28-4118Jdufbvane encounterRichdariusz BryantTEMPE ST. [facility] Family Medicine [place]Start: 11-01-2021 End: 37-33-3426kvrlespemnAcydmty Hermilo Other [place] [employer] Other Start: 00-85-0916Gukbfhpbx encounterMatthew WidmerFP[facility] [place]Start: 10-04-2021 End: 24-96-7149lkdjzhaoojJqnfviz Hermilo Other [employer] Other Start: 17-06-1027Qqwjhvtbq encounterMatthew WidmerFP[facility] CenteryStart: 09-30-2021 End: 50-63-1313ajjxgrlaehKhewpls Hermilo Other [employer] Other Start: 13-03-7375Nkzfjlpko encounterMatthew WidmerFP[facility] [place]Start: 09-20-2021 End: 49-98-8294zpcjctuyedUbwkygu Hermilo Other [employer] Other start: 16-67-5241Huhbncakg encounterMatthew WidmerFPG [facility] [place]Start: 09-02-2021 End: 33-08-2172qdvmtiahgtZacjhme Hermilo Other [employer] Other Start: 60-05-2877Cmnpfsqop encounterMatthew WidmerFP[facility] [place]Start: 09-01-2021 End: 69-14-9107sksswnutwdFhpnqvn Hermilo Other [employer] Other Start: 33-68-7342Olcmyhxal encounterMatthew WidmerFP[facility] CenteryStart: 08-18-2021 End: 90-70-2147imozddhqfuPgqytti Hermilo Other [employer] Other Start: 63-45-6476Shzjku outpatient visit 15 minutes Hannah [facility] CenteryStart: 07-04-2021 End: 35-54-6044ymosipolajKhkqxqk Hermilo Other [employer] Other Start: 21-59-9189Iwsfdywjt encounterMatthew WidmerKARENG Family Medicine [place]Start: 06-24-2021 End: 27-86-9548hmygluzimwMjrokca Hermilo Other [employer] Other Start: 00-90-1222Awcpsh outpatient visit 15 minutes Hannah [facility]Start: 06-02-2021 End: 48-79-1153zrunbjxsbmMvxgrud Hermilo Other [employer] Other Start: 38-84-1757Asyxubxfw encounterMatthew WidmerFP[facility] [place]townStart: 33-05-4109Qevuuim encounterCHARLES HOUSE Facility:C3Iikxq: 12-29-2016 End: 80-45-4512Tecrpiu encounterCHARLES HOUSEFacility:H1 Plan of Treatment DateCare ActivityDetailAuthorComprehensive metabolic [address] - [address] HospitalXR Cervical spine 4 [facility] Payers DatePayer CategoryPayerPolicy [id number] [id number] Health InsuranceUc Medical [id number]-iweCpas Pay [id number] Social History DateTypeDetailFacilityUnknown if ever smokedQuorum Other Sex Assigned At BirthSex Assigned At TricidaModenus [employer] Other Start: 07-10-2023 End: 42-13-1179Vzzijvn smoking status NHISNever smoked tobacco (finding) [facility] Hospitaltart: 66-58-6849Dcx Assigned At [facility] Hospitaltart: 07-08-2024 End: 05-86-2259YvsUipf (finding)[facility] Clinical Notes 06-02-2021 to 01-06-2025 Note Date & LqcaWydgOxvopwxd19-72-0255 Evaluation note* Diagnosis Onset Date Resolution Status Admit Date Other chronic pain acuteAugust 2024 8:43amScapular dyskinesisacuteAugust 2024 8:43am Adult ADHDchronicAugust 2024 8:43amAlcohol abusechronicAugust 2024 8:43amBMI 39.0-39.9,adultchronicAugust 2024 8:43amHTN (hypertension) chronicAugust 2024 8:43amModerate persistent asthma without complication chronicAugust 2024 8:43amTrapezius muscle spasmnoneactiveAugust 2024 8:43amWell adult examnoneactiveAugust 2024 8:43amNeck painnoneactive [place] 2024 8:43amAlcohol abusechronicSeptember 2024 8:39amHTN (hypertension)chronicSeptember 2024 8:39amURI (upper respiratory infection) noneactiveSeptember 2024 8:39am [facility] Work Phone: 1(308) 430-868005-31-2025 Evaluation note* Diagnosis Onset Date Resolution Status Admit Date Disseminated herpes zoster noneactiveMay 2024 12:18pmOther chronic painacuteAugust 2024 8:43am Scapular dyskinesisacuteAugust 2024 8:43amAdult ADHDchronicAugust 2024 8:43amAlcohol abusechronicAugust 2024 8:43amBMI 39.0-39.9,adult chronicAugust 2024 8:43amHTN (hypertension)chronicAugust 2024 8:43am Moderate persistent asthma without complicationchronicAugust 2024 8:43am Trapezius muscle spasmnoneactiveAugust 2024 8:43amWell adult exam noneactiveAugust 2024 8:43amNeck painnoneactiveAugust 2024 8:43am [facility] Work Phone: 1(291) 163-623101-15-2024 Evaluation note* Encounter Date Diagnosis Assessment Notes Treatment Notes Treatment Clinical Notes May, Adult ADHD (ICD-10 - F90.9) [employer] Other 12-14-2023 Evaluation note* Encounter Date Diagnosis Assessment Notes Treatment Notes Treatment Clinical Notes Apr, Adult ADHD (ICD-10 - F90.9) [employer] Other 11-14-2023 Evaluation note* Encounter Date Diagnosis Assessment Notes Treatment Notes Treatment Clinical Notes Mar, Alcohol abuse (ICD-10 - F10.10) Continue with vivitrol injections Mar,Scapular dyskinesis (ICD-10 - G25.89)Continue with PT 14 Mar, 2023Strain of left shoulder, subsequent encounter (ICD-10 - S46.912D) Continue with PT 14 Mar,rug-induced constipation (ICD-10 - K59.03)Will start Senna to get his bowels moving and instructed on how to increase as needed. 14 Mar, 2023Moderate persistent asthma without complication (ICD-10 - J45.40)No evidence of bronchitis but does need to use his albuterol a little more reguarly for now to get it back under control and if not improving or worsening then he is to call for prednisone. Mar,dult ADHD (ICD-10 - F90.9)Doing well on adderall 5 mg twice daily and will continue with it. [employer] Other 10-17-2023 Evaluation note* Encounter Date Diagnosis Assessment Notes Treatment Notes Treatment Clinical Notes Feb, Neck pain (ICD-10 - M54.2) Patient will be sent for physical therapy for his shoulder and neck. Feb,ronchitis (ICD-10 - J40)Patient has a bronchitis at this point that is likely viral and he will be placed on a prednisone burst. Patient was also instructed to pickling grader Mucinex DM and use his albuterol inhaler to help with his symptom control. Given warning signs to watch out for to indicate that this would be a bacterial infection brewing and he is to call right away if this occurs. 17 Feb, 2023Strain of left shoulder, initial encounter (ICD-10 - S46.912A) Feb,Scapular dyskinesis (ICD-10 - G25.89) 17 Feb,dult ADHD (ICD-10 - F90.9)5 mg Adderall twice daily is working very well for him and he will continue with this treatment. 17 Feb,lcohol abuse (ICD-10 - F10.10)Will get patient set up with a vivitrol clinic for the injection as the pills caused GI upset. [employer] Other 08-16-2023 Evaluation note* Encounter Date Diagnosis Assessment Notes Treatment Notes Treatment Clinical Notes Dec, Adult ADHD (ICD-10 - F90.9) [employer] Other 08-04-2023 Evaluation note* Encounter Date Diagnosis Assessment Notes Treatment Notes Treatment Clinical Notes Dec, Adult ADHD (ICD-10 - F90.9) [employer] Other 07-07-2023 Evaluation note* Encounter Date Diagnosis Assessment Notes Treatment Notes Treatment Clinical Notes Nov, Well adult exam (ICD-10 - Z00.00 ) 37-year-old male who has a couple chronic medical conditions but is currently doing well without significant alcohol abuse at this time and not taking the naltrexone. He does have an outer ear infection on the right and will be started on ofloxacin drops. He was given a refill of albuterol so he can have it on hand in case he gets asthma flareups. He is doing very well with Adderall 5 mg twice daily and it is helping to control his ADHD symptoms to keep him focused at work. He will continue with this medication at this time. OARRS reviewed. Patient did have some dysfunction in his piriformis as well as a posterior rotated innominate. HVLA performed on the posterior rotated innominate with re solution of the somatic dysfunction. Patient is to follow-up in 1 year or sooner if an acute issue arises. Nov,dult ADHD (ICD-10 - F90.9) Nov,Moderate persistent asthma without complication (ICD-10 - J45.40) Nov,cute swimmer's ear of right side (ICD-10 - H60.331) Nov,Somatic dysfunction of pelvis region (ICD-10 - M99.05) [employer] Other 06-08-2023 Evaluation note* Encounter Date Diagnosis Assessment Notes Treatment Notes Treatment Clinical Notes Oct, Adult ADHD (ICD-10 - F90.9) [employer] Other 05-08-2023 Evaluation note* Encounter Date Diagnosis Assessment Notes Treatment Notes Treatment Clinical Notes September, Adult ADHD (ICD-10 - F90.9) [employer] Other 04-07-2023 Evaluation note* Encounter Date Diagnosis Assessment Notes Treatment Notes Treatment Clinical Notes Aug, Herpes zoster without complicati on (ICD-10 - B02.9) Aug,dult ADHD (ICD-10 - F90.9) [employer] Other 03-10-2023 Evaluation note* Encounter Date Diagnosis Assessment Notes Treatment Notes Treatment Clinical Notes Jul, Adult ADHD (ICD-10 - F90.9) [employer] Other 03-10-2023 Evaluation note* Encounter Date Diagnosis Assessment Notes Treatment Notes Treatment Clinical Notes Jul, Herpes zoster without complicati on (ICD-10 - B02.9) Discussed diagnosis with patient. Will send in rx of Valcyclovir to use as directed. Explained to patient that antiviral medications will help rash heal faster. Will send in rx for Medrol for symptomatic relief, take as directed. Reviewed SE of steroid, monitor and if occur contact UC or PCP. Advised patient that areais contagious until lesions are crusted over. Reinforced good hand hygiene and infection control measures. Avoid touching face/eyes as it may spread. Do not scratch or pick at blisters, they will crust over and fall off on their own. May cover with non-occlusive bandage to prevent irritation or if draining. Use OTC Tylenol as needed for discomfort, avoid using NSAIDs (Motrin/Aleve/ASA) while taking steroid, may use after steroid course is completed. Moist cool compresses on affected areas can help with any pain and discomfort. Encouraged patient to follow upwith PCP in 2 weeks or sooner if symptoms do not improve. Immediate eval for fever, headache, stiff neck, rash onface/near eyes, eye pain, vision changes, or if any other new or concerning symptoms arise. Patient verbalized understanding and agreement with treatment plan [employer] Other 02-07-2023 Evaluation note* Encounter Date Diagnosis Assessment Notes Treatment Notes Treatment Clinical Notes Jun, Adult ADHD (ICD-10 - F90.9) [employer] Other 01-09-2023 Evaluation note* Encounter Date Diagnosis Assessment Notes Treatment Notes Treatment Clinical Notes May, Adult ADHD (ICD-10 - F90.9) [employer] Other 10-05-2022 Evaluation note* Encounter Date Diagnosis Assessment Notes Treatment Notes Treatment Clinical Notes Feb, Adult ADHD (ICD-10 - F90.9) Continue for now with the Adderall 5 mg twice daily as it is working well for him in controlling his ADHD symptoms to allow him to stay focused while at work. Feb,lcohol abuse (ICD-10 - F10.10)Discussion had with patient regarding his alcohol abuse and does state that he has stopped for a few days here and there and has not gone through any withdrawal symptoms. I did offer to refer him to individual clinic and counseling but he does not want to do this and would like to try the Vivitrol pill. Patient will be started on this and was given precautions to watch out for. He is to call in acouple weeks to let me know how he is doing and certainly he is to return sooner if he has any issues. [employer] Other 09-07-2022 Evaluation note* Encounter Date Diagnosis Assessment Notes Treatment Notes Treatment Clinical Notes Jan, Adult ADHD (ICD-10 - F90.9) [employer] Other 08-08-2022 Evaluation note* Encounter Date Diagnosis Assessment Notes Treatment Notes Treatment Clinical Notes Dec, Adult ADHD (ICD-10 - F90.9) [employer] Other 07-08-2022 Evaluation note* Encounter Date Diagnosis Assessment Notes Treatment Notes Treatment Clinical Notes Nov, Dermatophytosis of body (ICD-10 - B35.4) [employer] Other 07-07-2022 Evaluation note* Encounter Date Diagnosis Assessment Notes Treatment Notes Treatment Clinical Notes Nov, Adult ADHD (ICD-10 - F90.9) Pt doing very well on Adderall 5mg BID. He states he is managing work well, with sound concentration and able to sleep. Will continue this medication. Placed order for CMP to be collected and will call with results. Nov,Well adult exam (ICD-10 - Z00.00)36 y.o. male seen today for an AWV with acute complaints of ear pain and drainage as well as developing rash to upper torso. He has few chronic medical conditions that require medication managment butis overall doing very well and in overall good health. He expresses concern with lingering back pain and shoulder pain that has improved after taking some suppliments and would like to talk with Dr. Santos on benefits of suppliments versus receiving steroid shots. Advised pt to establish a sports me dicine visit to discuss and develop a treatment plan with Dr. Santos. He acknowledges understandingand agrees to treatment plan. Nov,Moderate persistent asthma without complication (ICD-10 - J45.40)Pt denies complications during this visit and is doing well with minimal inhaler usage. Nov,Medication monitoring encounter (ICD-10 - Z51.81) Nov,creening for cardiovascular condition (ICD-10 - Z13.6)Will perform Lipid panel to screen for cardivascular risk based on age, medication usage, and BMI. Nov,ecurrent acute suppurative otitis media without spontaneous rupture of tympanic membrane of both sides (ICD-10 - H66.006)Given pt presentation and physical exam pt has been experiencing symptoms of ear pain and drtainagefor 2 weeks. There is moderate bilateral effusion, Erythematous TMs. Start Amoxicillin Clavulanate 875-125mg orally BID for 10 days. Advised pt that should feel relief in 5-6 days but to complete themedcation. Pt acknowledges understanding and agrees to treatment. Nov,ermatophytosis of body (ICD-10 - B35.4)Rash is indicative of hypopigmented pityriasis versicolor. Start Fluconazole 200mg daily for 10 days d/t this covering a large amount of his upper L torso, back, and LUE. Start a topical cream of Clotrimazole 1% cream. Advised to call if no improvement within the next 7 days. Pt acknowledges understanding and agrees to treatment. [employer] Other 07-05-2022 Evaluation note* Encounter Date Diagnosis Assessment Notes Treatment Notes Treatment Clinical Notes Nov, Adult ADHD (ICD-10 - F90.9) [employer] Other 06-07-2022 Evaluation note* Encounter Date Diagnosis Assessment Notes Treatment Notes Treatment Clinical Notes Oct, Adult ADHD (ICD-10 - F90.9) [employer] Other 05-06-2022 Evaluation note* Encounter Date Diagnosis Assessment Notes Treatment Notes Treatment Clinical Notes September, Adult ADHD (ICD-10 - F90.9) [employer] Other 04-08-2022 Evaluation note* Encounter Date Diagnosis Assessment Notes Treatment Notes Treatment Clinical Notes Aug, Adult ADHD (ICD-10 - F90.9) [employer] Other 03-24-2022 Evaluation note* Encounter Date Diagnosis Assessment Notes Treatment Notes Treatment Clinical Notes Jul, Stressful life event affecting f veronicay (ICD-10 - Z63.79) Patient is having significant stress in his life related to his girlfriend cheating on him and leaving him for someone else. He is doing the right things by seeking help as opposed to doing for life choices and coping with this. We will get him plugged in with behavioral health with a clinical social work to do therapy with him. He would like to do [facility] recovery services in [place]. He is to call and return if he feels his symptoms are worsening he needsmedication. Jul,omatic dysfunction of cervical region (ICD-10 - M99.01) Patient had somatic dysfunction noted in the neck. HVLA performed with complete resolution of the somatic dysfunction and improvement of patient's symptoms. [employer] Other 02-07-2022 Evaluation note* Encounter Date Diagnosis Assessment Notes Treatment Notes Treatment Clinical Notes Jun, Adult ADHD (ICD-10 - F90.9) [employer] Other 01-28-2022 Evaluation note* Encounter Date Diagnosis Assessment Notes Treatment Notes Treatment Clinical Notes May, Non-recurrent acute suppurative otitis media of left ear without spontaneous rupture of tympanic membrane (ICD-10 - H66.002) Patient has otitis media and this was explained to him. He will be started on an abx. It was explained to her that if she's not improving in the next few days he is to follow up here or call. He was instructed that he can use Tylenol or Motrin for pain control. Pt. voiced understanding and agrees to the treatment plan. [employer] Other 01-06-2022 Evaluation note* Encounter Date Diagnosis Assessment Notes Treatment Notes Treatment Clinical Notes May, Adult ADHD (ICD-10 - F90.9) [place] [facility] [employer] Other Evaluation noteNo InformationNort SimpleMist Other Evaluation note* Diagnosis Onset Date Resolution Status Adult ADHD chronicAlcohol abusechronicModerate persistent asthma without complication chronicWell adultnoneactive [facility] Work Phone: Evaluation note* Diagnosis Onset Date Resolution Status Admit Date Adult ADHD chronicFebruary 2024 8:24amAlcohol abusechronicFebruary 2024 8:24am [facility] Work Phone: Evaluation noteNo assessment information available [facility] Work Phone: History general Narrative - Reported* Type Description Date Medical History asthma Medical HistoryshinglesSurgical Historyshoulder surgery bilateralSurgical Historyhernia repair [facility] [employer] Other Reason for referral (narrative)* Reason Needs counseling for current life stressors causing dysfunction Diagnosis 1 Stressful life event affecting family (Z63.79) Referral Organization [facility] Family Caitlin Carcamo Referring Provider First Name Hannah Referring Provider Last Name Hermilo Referring Provider Specialty Family Prac nya Referred Organization [facility] [place] Referred Address [address],[place], [place],[address] Referred Provider Specialty Social Worke r Clinical Referral Priority Routine General Notes Lu Casey 11:44:46 AM >referral received waiting for notes to be locked [employer] [facility] [employer] Other Reason for referral (narrative)No reason for referral information availableA[facility] Work Phone: Summary Purpose Family History Relationship Condition Age at Onset Recorded Date/T eddi mother Heart disease Unknown Advance Directives Advance Directive Response Recorded Date/ Time Advance Directives No March 28, 2018 4:20pm Advance Directive Response Recorded Date/ Time Advance Directives No March 28, 2018 3:20pm Chief Complaint and Reason for Visit Chief Complaint Annual Reason for Visit Adult ADHD Alcohol abuse Moderate persistent asthma without complication Well adult Chief Complaint Admit Date 6 month follow up July 08, 2024 8:24am Reason for Visit Admit Date Adult ADHD July 08, 2024 8:24am Alcohol abuse July 08, 2024 8:24am Somatic dysfunction of pelvic region Feb ruary 2024 8:24am Chief Complaint Admit Date Sun burn/blister on forehead, poss infec tion October 25, 2024 12:18pm Chief Complaint Admit Date Sun burn/blister on forehead, poss infec tion October 25, 2024 12:18pm AWV January 06, 2025 8: 43am Reason for Visit Admit Date Disseminated herpes zoster October 25 12:18pm Other chronic pain January 06, 2025 8: 43am Scapular dyskinesis January 06, 2025 8: 43am Adult ADHD January 06, 2025 8: 43am Alcohol abuse January 06, 2025 8: 43am BMI 39.0-39.9,adult January 06, 2025 8: 43am HTN (hypertension) January 06, 2025 8: 43am Moderate persistent asthma without compl ication January 06, 2025 8:43am Trapezius muscle spasm January 06, 2025 8:43am Well adult exam January 06, 2025 8: 43am Neck pain January 06, 2025 8: 43am Chief Complaint Admit Date AWV January 06, 2025 8: 43am 4 week f/u February 03, 2025 8:39am Reason for Visit Admit Date Other chronic pain January 06, 2025 8: 43am Scapular dyskinesis January 06, 2025 8: 43am Adult ADHD January 06, 2025 8: 43am Alcohol abuse January 06, 2025 8: 43am BMI 39.0-39.9,adult January 06, 2025 8: 43am HTN (hypertension) January 06, 2025 8: 43am Moderate persistent asthma without compl ication January 06, 2025 8:43am Trapezius muscle spasm January 06, 2025 8:43am Well adult exam January 06, 2025 8: 43am Neck pain January 06, 2025 8: 43am Alcohol abuse February 03, 2025 8:39am HTN (hypertension) February 03, 2025 8:39am URI (upper respiratory infection) Septem 2024 8:39am Additional Source Comments (unrecognized sect ion and content) No Status Records FoundNo Status Records FoundNo Status Records Found INFORMATION SOURCE (unrecogn ized section and content) DATE CREATED AUTHOR 12/26/2017 [facility] DATE CREATED AUTHOR AUTHOR'S ORGANIZ ATION 12/19/2019 [facility] DATE CREATED AUTHOR AUTHOR'S ORGANIZ ATION 05/05/2023 [facility] EPIC REASON FOR VISIT (unrecogniz ed section and content) refillREFILLrecheck earREFIL LDISCUSS REFERRALpt not respondingNo InformationrefillFCRS ReferralNo InformationREFILLrefillAWV/possible ear infectionquestionREFILLREFILLdiscuss medicationsmed refillREFILLrefill/prescriptionRASHNo InformationrefillREFILLrefillannual well adultRefillsrefillchest cold-covid test negative yesterday1 month Follow upvivitrol shotRefillsrefill Care Teams (unrecognized sec tion and content) Team Status: Active Member Role Status Dates Hannah Santos DO Primary Care Provider Active Team Status: Inactive Member Role Status Dates Hannah Santos DO Primary Care Provi carrie, Attending Provider Active Start: January 01, 2024 End: January 01, 2024 Team Status: Inactive Member Role Status Dates Hannah Santos DO Primary Care Provi carrie, Attending Provider Active Start: July 08, 2024 End: July 08, 2024 Team Status: Inactive Member Role Status Dates Hannah Santos DO Primary Care Provider Active Start: October 25, 2024 End: October 25Kris Dill ProviderActiveStart: October 25, 2024 End: October 25, 2024 Team Status: Inactive Member Role Status Dates Hannah Santos DO Primary Care Provider Active Start: January 06, 2025 End: January 06, 2025Mattmike Santos DOAttending ProviderActiveStart: January 06, 2025 End: January 06, 2025 Team Status: Inactive Member Role Status Dates Hannah Santos DO Primary Care Provider Active Start: February 03, 2025 End: February 03, 2025Mafran Santos DOAttending ProviderActiveStart: February 03, 2025 End: February 03, 2025 Goals (unrecognized section and content) Goals may be documented in a n alternate section FOR RECORDS PERTAINING TO PATIENTS WHO ARE OR HAVE BEEN ENROLLED IN A CHEMICAL DEPENDENCY/SUBSTANCEABUSE PROGRAM, SOME INFORMATION MAY BE OMITTED. This clinical summary was aggregated from multiple sources. Caution should be exercised in using it in the provision of clinical care. This summary normalizes information from multiple sources, and as a consequence, information in this document may materially change the coding, format and clinical context of patient data. In addition, data may be omitted in some cases. CLINICAL DECISIONS SHOULD BE BASED ON THE PRIMARY CLINICAL RECORDS. [employer] [facility]. provides no warranty or guarantee of the accuracy or completeness of information in this document.
--- NOTE | 2025-04-13 16:52 | ED_ITS ---
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 He did buy a short cam walking boot at a [employer] and has been using this. He states he has been drinking alcohol to help with the pain as he does not want to take any kind of pills. He denies drinking daily prior to this injury. He is very anxious that he has a possible fracture. Related Data Home Medications ?Medication ?Instructions ?Recorded ?Confirmed albuterol sulfate 90 mcg/actuation inhalation 04/13/25 aerosol inhaler dextroamphetamine-amphetamine 10 10 mg PO BID 04/13/25 04/13/25 mg tablet Allergies Allergy/AdvReac Type Severity Reaction Status Date / Time No Known Drug Allergies Allergy Verified 04/13/25 14:28 Opioid HPI Opioid Management Most Recent Opioid Data: Last Pain Scale 10 04/13/25, 14:40 Review of Systems ROS Status of ROS 10 or more systems reviewed and unremark able except as noted in history and below PFSH PFSH Social History Little interest or pleasure in doing things: not at all Feeling down, depressed, or hopeless: not at all Exam Narrative Exam Narrative: General: No distress, age-appropriate Skin: Warm, dry, no pallor. No rash. Head: Normocephalic, atraumatic. Neck: Supple, non-tender. Eye: Pupils are equal, round and EOMI. No scleral icterus. Ears, Nose, Mouth, and Throat: No nasal mucosal hypertrophy. Oral mucosa is moist, no posterior oropharynx erythema, uvula is mid-line Cardiovascular: Regular Rate and Rhythm without murmur, gallop or rub. Respiratory: No accessory muscle use or respiratory distress. Musculoskeletal: Full ROM of all extremities, no calf or popliteal tenderness. Right great toe, no erythema, full plantarflexion, some pain with dorsi flexion. Tenderness with palpation of the MTP and PIP. Neurological: A&O x4. No cranial nerve dysfunction observed. No truncal ataxia. Moves all extremities. Sensation intact. Psychiatric: Cooperative and interactive. Normal mood and affect. Constitutional Vital Signs, click to edit/add: Last Vital Signs Temp 97.7 F 04/13/25 14:30 Pulse 122 H 04/13/25 14:30 Resp 18 04/13/25 14:30 BP 209/115 H 04/13/25 14:30 Pulse Ox 96 04/13/25 14:30 O2 Del Method Room Air 04/13/25 14:30 Documenting provider has reviewed patient's vital signs: yes Course Vital Signs Vital signs: Vital Signs Temperature 97.7 F 04/13/25 14:30 Pulse Rate 122 H 04/13/25 14:30 Respiratory Rate 18 04/13/25 14:30 Blood Pressure 209/115 H 04/13/25 14:30 Pulse Oximetry 96 04/13/25 14:30 Oxygen Delivery Method Room Air 04/13/25 14:30 Temperature 97.7 F 04/13/25 14:30 Pulse Rate 122 H 04/13/25 14:30 Respiratory Rate 18 04/13/25 14:30 Blood Pressure 209/115 H 04/13/25 14:30 Pulse Oximetry 96 04/13/25 14:30 Oxygen Delivery Method Room Air 04/13/25 14:30 Medical Decision Making MDM Narrative Medical decision making narrative: This is a 40-year-old male that presented to the ED 5 days after a injury to his right great toe while coaching his [employer] flag football. He is unsure of the mechanism but states that he had turf toe in college a few times and this feels similar. He states he does not like taking pills and has been drinking alcohol as the pain has been so great. He denies being a daily drinker normally. He has been ambulating in a short cam walking boot. X-ray right foot ordered. Patient denies need for pain medication here. He denies drinking today but did have someone drive him here as he had drank last night. X-ray right foot radiological read reveals No acute displaced fracture. Extensive first toe degeneration. X-ray films discussed and showed to patient. Patient reports relief that there is no fracture. We discussed his blood pressure and heart rate 209/115, heart rate 122 and potential endorgan damage that this can cause. Patient declines any further workup and did not denies being symptomatic. He states he has been very anxious that he has a fracture in his toe and is regretful that he has been drinking so much from the pain. I discussed if he is still having pain in the walking boot we should consider crutches. He declines crutch use and will continue use the boot. He would like to be discharged as he feels great relief there is no fracture. I did discuss follow-up with Dr. Dietrich and gave him contact info to make a follow-up appointment. Return precautions for any new or worsening symptoms discussed. Patient voiced understanding and was discharged in stable condition, pain controlled, patient observed ambulating with steady gait in the walking boot, and will have close follow-up with podiatry. Differential Diagnosis Differential Diagnosis: Turftoe, great toe fracture, gout flare, MTP arthritis Imaging Data X-ray right foot: Attestation: I have reviewed the pertinent imaging results. Radiologist's impression: ITS Impressions Foot X-Ray 04/13/25 15:02 IMPRESSION: No acute displaced fracture. Extensive first toe degeneration. Impression dictated by: Emeterio Giraldo M.D. 04/13/2025 4:30 PM Dictation Location: Spectral Image Electronically authenticated by: [id number] Y Date: 04/13/2025 16:30 Discharge Plan Discharge Chief Complaint: Extremity Injury, Lower Clinical Impression: Great toe pain Patient Disposition: Home, Self-Care Time of Disposition Decision: 16:51 Condition: Good Mode of Transportation: Private Vehicle Prescriptions / Home Meds: No Action dextroamphetamine-amphetamine 10 mg tablet 10 mg PO BID albuterol sulfate 90 mcg/actuation HFA aerosol inhaler INHALATION Print Language: Swedish Referrals: HANNAH SANTOS [Primary Care Provider] - 1 week Yair Dietrich DPM [Physician, Podiatry] - As soon as possible Discharge Date/Time: 04/13/25 17:03
== END 2025-04-13 17:03 | disposition home or self-care (01) ==
PROVIDERS: Emergency Provider Emergency Medicine
DX: M79.674 Pain in right toe(s) (principal)
CPT/HCPCS: 73630; 99283